=== PATIENT | male | born 1960 | race Caucasian/White ===

== ENCOUNTER 2019-11-02 18:26 | Emergency (ER) | payer OTHER ==
[~2019-11-02] VITALS: Ht 172.7 cm; Wt 80.7 kg
--- NOTE | 2019-11-02 19:13 | ED Lower Extremity ---
General Chief Complaint: Trauma-Non Activation Stated Complaint: FALL Nursing Triage Note: PT STATES HE FELL AND LANDED ON RIGHT HIP. Nursing Sepsis Screen: No Definite Risk History of Present Illness Date Seen by Provider: Nov 02, 2019 Time Seen by Provider: 18:40 Initial Comments 58 year old male reports falling 10/29/19, landing on his left hip and buttock. He also sustained an injury to his head, he denies any loss of consciousness. He drinks alcohol daily, after the fall he stopped drinking for 2 days and noticed tremors. He began drinking again yesterday and the tremors improved. He reports 3-4 beers today. He does not wish to stop drinking alcohol at this time. He is complaining of pain laterally in the left hip. He denies any pain radiating down his leg he denies any bowel or bladder changes. Onset: last week Pain/Injury Location: left hip; bilateral other (low back) Method of Injury: fell Allergies and Home Medications Allergies Coded Allergies: No Known Drug Allergies (Unverified , 11/02/19) Patient Home Medication List Home Medication List Reviewed: Yes Review of Systems Constitutional: no symptoms reported, see HPI Musculoskeletal: see HPI, back pain, joint pain (left hip) All Other Systems Reviewed Negative Unless Noted: Yes Past Ol[place]apu-Gtalsi-Hbfuwb Hx Past Med/Social Hx: Reviewed Nursing Past Med/Soc Hx Patient Social History Alcohol Use: Regular Use Number of Drinks Today: 3 Alcohol Beverage of Choice: Beer Recreational Drug Use: No Smoking Status: Current Everyday Smoker Type Used: Cigarettes 2nd Hand Smoke Exposure: Yes Recent Foreign Travel: No Contact w/Someone Who Travel: No Recent Infectious Disease Expo: No Recent Hopitalizations: No Physical Abuse: No Sexual Abuse: No Mistreated: No Fear: No Seasonal Allergies Seasonal Allergies: No Past Medical History Surgeries: Yes Orthopedic Respiratory: Yes COPD Currently Using CPAP: No Currently Using BIPAP: No Cardiac: No Neurological: Yes Seizure Disorder Genitourinary: No Gastrointestinal: No Musculoskeletal: Yes Back Injury, Chronic Back Pain, Fractures Endocrine: No HEENT: Yes Cataract Loss of Vision: Denies Hearing Impairment: Denies Cancer: No Psychosocial: No Integumentary: No Blood Disorders: No Physical Exam Vital Signs Vital Signs - First Documented 11/02/19 11/02/19 18:34 20:28 Temp 36.5 Pulse 76 Resp 17 B/P (MAP) 116/77 (90) Pulse Ox 97 O2 Delivery Room Air Capillary Refill : Less Than 3 Seconds Height, Weight, BMI Height: '" Weight: lbs. oz. kg; 27.00 BMI Method: General Appearance: WD/WN HEENT: PERRL/EOMI, normal ENT inspection, TMs normal, pharynx normal, other ( head normocephalic, small abrasion to the left parietal. No warmth, discharge, induraction or fluctuance.) Cardiovascular: regular rate, rhythm Respiratory: chest non-tender, lungs clear, normal breath sounds Gastrointestinal: normal bowel sounds, non tender, soft Hips: bilateral hip normal inspection, bilateral hip normal range of motion, bilateral hip no evidence of injury; left hip bone tenderness (lateral), left hip soft tissue tenderness Legs: bilateral leg non-tender, bilateral leg normal inspection, bilateral leg normal range of motion, bilateral leg no evidence of injury Neurologic/Tendon: normal sensation, normal motor functions, normal tendon functions Neurologic/Psychiatric: no motor/sensory deficits, alert, normal mood/affect, oriented x 3 Skin: normal color, warm/dry Tenderness to palpation in the lower lumbar spine region. Neurovascular status intact bilateral lower extremities. Walks with a steady gait. Progress/Results/Core Measures Results/Orders My Orders Orders - KEL MUNSON Lumbar Spine - 2-3 Views (11/02/19 18:49) Pelvis With Left Hip 2-3 Views (11/02/19 18:49) Ct Head/Cervical Spine Wo (11/02/19 19:50) Ed Iv/Invasive Line Start (11/02/19 19:51) Ns Iv 1000 Ml (Sodium Chloride 0.9%) (11/02/19 19:51) Ns Iv 1000 Ml (Sodium Chloride 0.9%) (11/02/19 19:46) Dipht,Pertuss(Acell),Tet Adult (Boostrix (11/02/19 20:30) Vital Signs/I&O 11/02/19 11/02/19 18:34 20:28 Temp 36.5 Pulse 76 78 Resp 17 18 B/P (MAP) 116/77 (90) 122/71 Pulse Ox 97 O2 Delivery Room Air Room Air Blood Pressure Mean: 90 Progress Progress Note : Time: 18:40 Progress Note Patient seen and evaluated, Diagnostic Imaging Diagonstic Imaging: Xray Plain Films/CT/US/NM/MRI: pelvis, hip Comments NAME: RAFAELA THOMAS [facility] REC#: [id number] PT STATUS: REG ER : 1960 PHYSICIAN: KEL MUNSON ADMIT DATE: 11/02/19/ER Signed Date of Exam:11/02/19 LUMBAR SPINE - 2-3 VIEWS EXAMINATION: Lumbosacral spine 2 or 3 views HISTORY: Fall. Left hip pain. COMPARISON: None available. FINDINGS: There is no acute fracture or dislocation of the lumbar spine. Alignment is anatomic. The vertebral body heights are well maintained. Mild to moderate degenerative changes are present in the lumbar spine, with disc height loss, facet hypertrophy and marginal osteophyte formation. The included soft tissues are unremarkable. IMPRESSION: 1. No acute fracture or dislocation in the lumbar spine. Dictated by: Dictated on workstation # [id number] Dict: 11/02/191909 Trans: 11/02/191914 [facility] [id number] Interpreted by: SARBJIT HENDERSON DO Electronically signed by: SARBJIT HENDERSON DO 11/02/191914 Diagonstic Imaging: Xray Plain Films/CT/US/NM/MRI: other (lumbar spine) Comments NAME: RAFAELA THOMAS [facility] REC#: [id number] PT STATUS: REG ER : 1960 PHYSICIAN: KEL MUNSON ADMIT DATE: 11/02/19/ER Signed Date of Exam:11/02/19 LUMBAR SPINE - 2-3 VIEWS EXAMINATION: Lumbosacral spine 2 or 3 views HISTORY: Fall. Left hip pain. COMPARISON: None available. FINDINGS: There is no acute fracture or dislocation of the lumbar spine. Alignment is anatomic. The vertebral body heights are well maintained. Mild to moderate degenerative changes are present in the lumbar spine, with disc height loss, facet hypertrophy and marginal osteophyte formation. The included soft tissues are unremarkable. IMPRESSION: 1. No acute fracture or dislocation in the lumbar spine. Dictated by: Dictated on workstation # [id number] Dict: 11/02/191909 Trans: 11/02/191914 [facility] [id number] Interpreted by: SARBJIT HENDERSON DO Electronically signed by: SARBJIT HENDERSON DO 11/02/191914 Reviewed: Reviewed by Me Diagonstic Imaging: CT Plain Films/CT/US/NM/MRI: c-spine, head Comments NAME: RAFAELA THOMAS [facility] REC#: [id number] PT STATUS: REG ER : 1960 PHYSICIAN: KEL MUNSON ADMIT DATE: 11/02/19/ER Draft Date of Exam:11/02/19 CT HEAD/CERVICAL SPINE WO PROCEDURE: CT head and CT cervical spine without contrast. TECHNIQUE: Multiple contiguous axial images were obtained through the brain and cervical spine without the use of intravenous contrast. Sagittal and coronal reformations through the cervical spine were then performed. Auto Exposure Controls were utilized during the CT exam to meet ALARA standards for radiation dose reduction. INDICATION: Multiple falls. Scalp contusion. Neck pain. COMPARISON: None. FINDINGS: CT head: No large acute territorial ischemia, mass, or hemorrhage. The ventricles and cortical sulci are prominent, consistent with generalized volume loss. The basilar cisterns are patent and unremarkable. The calvarium is intact. The visualized paranasal sinuses are clear. CT cervical spine: No acute fracture or dislocation is seen in the cervical spine. No focal osseous lesions. Vertebral body heights are well-maintained. The craniocervical junction is well-maintained. Moderate degenerative changes are seen in the cervical spine with disc osteophyte complexes and uncovertebral arthropathy. Soft tissues of the neck are unremarkable. IMPRESSION: 1. No hemorrhage or focal intra-axial mass. No CT evidence of large acute territorial ischemia. 2. No acute fracture or dislocation in the cervical spine. 3. Generalized parenchymal volume loss. 4. Moderate degenerative changes in the cervical spine. Dictated on workstation # [id number] Reviewed: Reviewed by Me Departure Impression Primary Impression: Fall Qualified Codes: W19.XXXA - Unspecified fall, initial encounter Additional Impressions: Left hip pain Degenerative joint disease (DJD) of lumbar spine Qualified Codes: M47.816 - Spondylosis without myelopathy or radiculopathy, lumbar region Concussion Qualified Codes: S06.0X0A - Concussion without loss of consciousness, initial encounter Alcohol abuse Disposition: 01 HOME, SELF-CARE Condition: Improved Departure-Patient Inst. Decision time for Depature: 19:20 Patient Instructions: Alcohol Abuse and Alcoholism (DC), Concussion, Adult (DC), Hip Pain (DC), Low Back Pain (DC) Add. Discharge Instructions: Do not stop drinking all alcohol but slowly decrease daily amount. Use walker or cane, for unsteady gate. Consider seeing your primary care doctor for alcohol cessation. You may alternate between Tylenol 650 mg and ibuprofen 600 mg every 4 hours for pain. Alternate heat and ice to your low back and left hip for pain. Follow-up with your primary care provider in 2-3 days. Return to the emergency department for new, urgent health care needs. All discharge instructions reviewed with patient and/or family. Voiced understanding. KEL MUNSON Nov 02, 2019 19:13
--- NOTE | 2019-11-02 19:15 | Diagnostic Imaging Report ---
CLINICAL HISTORY: Fall. Left hip pain. COMPARISON: None. TECHNIQUE: 3 views of the pelvis and left hip. FINDINGS: There is no acute fracture or dislocation of the pelvis and left hip. Alignment is anatomic. The bilateral SI joints are well aligned. Mild degenerative changes are present in the left hip with marginal osteophytes and joint space narrowing. No large joint effusion is seen in the left hip. The surrounding soft tissues are unremarkable. IMPRESSION: 1. No acute fracture or dislocation in the pelvis and left hip. Dictated by: Dictated on workstation # [id number]
[2019-11-02] MEDS ORDERED: NS IV 1000 ML 1,000 ML ONE (19:46)
[2019-11-02] MEDS ORDERED: NS IV 1000 ML 1,000 ML IV SCH (19:51)
--- NOTE | 2019-11-02 20:09 | Diagnostic Imaging Report ---
PROCEDURE: CT head and CT cervical spine without contrast. TECHNIQUE: Multiple contiguous axial images were obtained through the brain and cervical spine without the use of intravenous contrast. Sagittal and coronal reformations through the cervical spine were then performed. Auto Exposure Controls were utilized during the CT exam to meet ALARA standards for radiation dose reduction. INDICATION: Multiple falls. Scalp contusion. Neck pain. COMPARISON: None. FINDINGS: CT head: No large acute territorial ischemia, mass, or hemorrhage. The ventricles and cortical sulci are prominent, consistent with generalized volume loss. The basilar cisterns are patent and unremarkable. The calvarium is intact. The visualized paranasal sinuses are clear. CT cervical spine: No acute fracture or dislocation is seen in the cervical spine. No focal osseous lesions. Vertebral body heights are well-maintained. The craniocervical junction is well-maintained. Moderate degenerative changes are seen in the cervical spine with disc osteophyte complexes and uncovertebral arthropathy. Soft tissues of the neck are unremarkable. IMPRESSION: 1. No hemorrhage or focal intra-axial mass. No CT evidence of large acute territorial ischemia. 2. No acute fracture or dislocation in the cervical spine. 3. Generalized parenchymal volume loss. 4. Moderate degenerative changes in the cervical spine. Dictated by: Dictated on workstation # [id number]
[2019-11-02 20:28] VITALS: BP 122/71
[2019-11-02] MEDS ORDERED: TETANUS,DIPTH,PERTUSS P/F (BOOSTRIX) 0.5 ML VIAL IM ONE (20:30)
== END 2019-11-02 20:28 | disposition home or self-care (01) ==
LOC: ER 18:31
DX: S06.0X0A Concussion without loss of consciousness, initial encounter (principal); M25.552 Pain in left hip; M47.816 Spondylosis without myelopathy or radiculopathy, lumbar region; F10.10 Alcohol abuse, uncomplicated; F17.210 Nicotine dependence, cigarettes, uncomplicated; J44.9 Chronic obstructive pulmonary disease, unspecified; G40.909 Epilepsy, unspecified, not intractable, without status epilepticus; W19.XXXA Unspecified fall, initial encounter
CPT/HCPCS: 70450; 72100; 72125

== ENCOUNTER 2020-03-08 14:19 | Emergency (ER) | payer OTHER ==
[~2020-03-08] VITALS: Ht 180.3 cm; Wt 71.6 kg
--- NOTE | 2020-03-08 14:52 | ED Upper Extremity ---
General Chief Complaint: Upper Extremity Stated Complaint: RT SHOULDER INJ Nursing Triage Note: Patient reports he has seizures/syncopal episodes, states he had one today and woke up with right shoulder pain. Patient states he does not want to be evaluated for his syncopal episodes, only his right shoulder pain. Nursing Sepsis Screen: No Definite Risk History of Present Illness Date Seen by Provider: Mar 08, 2020 Time Seen by Provider: 14:40 Initial Comments Fall today in the bathtub, now having R shoulder pain. Says he as a Hx of theses episodes and [facility] Not on Seizure medication. Says he does not want evaluated for Sz, just his shoulder. Denies other injury. Allergies and Home Medications Allergies Coded Allergies: No Known Drug Allergies (Unverified , 11/02/19) Patient Home Medication List Home Medication List Reviewed: Yes Review of Systems Constitutional: no symptoms reported; No dizziness, No fever, No malaise, No weakness Respiratory: No cough, No short of breath Cardiovascular: No chest pain, No edema, No palpitations Gastrointestinal: No abdominal pain, No constipation, No diarrhea, No loss of appetite, No vomiting Musculoskeletal: No back pain; joint pain (R shoulder); No neck pain Skin: No change in color, No lesions, No rash Past Lisepcx-Vdizvy-Fjnvkc Hx Past Med/Social Hx: Reviewed Nursing Past Med/Soc Hx Patient Social History Alcohol Use: Regular Use Number of Drinks Today: 0 Alcohol Beverage of Choice: Beer Recreational Drug Use: Yes Drug of Choice: marijuana Smoking Status: Current Everyday Smoker Type Used: Cigarettes 2nd Hand Smoke Exposure: Yes Recent Foreign Travel: No Contact w/Someone Who Travel: No Recent Infectious Disease Expo: No Recent Hopitalizations: No Physical Abuse: No Sexual Abuse: No Mistreated: No Fear: No Seasonal Allergies Seasonal Allergies: No Past Medical History Surgeries: Yes Orthopedic Respiratory: Yes COPD Currently Using CPAP: No Currently Using BIPAP: No Cardiac: No Neurological: Yes Seizure Disorder Genitourinary: No Gastrointestinal: No Musculoskeletal: Yes Back Injury, Chronic Back Pain, Fractures Endocrine: No HEENT: Yes Cataract Loss of Vision: Denies Hearing Impairment: Denies Cancer: No Psychosocial: No Integumentary: No Blood Disorders: No Physical Exam Vital Signs Vital Signs - First Documented 03/08/20 14:27 Temp 36.5 Pulse 69 Resp 18 B/P (MAP) 104/71 (82) Pulse Ox 100 O2 Delivery Room Air Capillary Refill : Less Than 3 Seconds Height, Weight, BMI Height: '" Weight: lbs. oz. kg; 22.00 BMI Method: General Appearance: WD/WN, no apparent distress Neck: non-tender, full range of motion, supple, normal inspection Cardiovascular: regular rate, rhythm, no edema Respiratory: chest non-tender, lungs clear Back: normal inspection, no CVA tenderness, no vertebral tenderness Shoulder: bone tenderness (R AC and distal clavicle), deformity (elevation AC joint); No ecchymosis; limited ROM (slow, but near full ROM w signif pain) Elbow/Forearm: normal inspection, non-tender, no evidence of injury, normal ROM Wrist: Yes normal inspection, Yes non-tender, Yes no evidence of injury, Yes normal ROM Hand: normal inspection, non-tender, no evidence of injury, normal ROM Neurologic/Tendon: normal sensation, normal motor functions, normal tendon functions Neurologic/Psychiatric: no motor/sensory deficits, alert, normal mood/affect, oriented x 3 Skin: normal color, warm/dry Progress/Results/Core Measures Results/Orders My Orders Orders - CARLO CHAIREZ DO Shoulder 3 View Right (03/08/20 14:40) Chest 1 View Ap/Pa Only (03/08/20 15:16) Vital Signs/I&O 03/08/20 14:27 Temp 36.5 Pulse 69 Resp 18 B/P (MAP) 104/71 (82) Pulse Ox 100 O2 Delivery Room Air Blood Pressure Mean: 82 Departure Impression Primary Impression: Fracture, clavicle closed, shaft Qualified Codes: S42.021A - Displaced fracture of shaft of right clavicle, initial encounter for closed fracture Disposition: HOME, SELF-CARE Condition: Stable Departure-Patient Inst. Referrals: NO,LOCAL PHYSICIAN (PCP/Family) Primary Care Physician Patient Instructions: Clavicle Fracture (DC) Add. Discharge Instructions: Follow up at the [place] [facility] [place]: in 1-2 weeks regarding your episodes of passing out. in 4 weeks to repeat x-rays of your R clavicle and shoulder. All discharge instructions reviewed with patient and/or family. Voiced understanding. CARLO CHAIREZ DO Mar 08, 2020 14:51
--- NOTE | 2020-03-08 14:58 | Diagnostic Imaging Report ---
INDICATION: Fall with right shoulder pain. TIME OF EXAM: 2:45 PM. FINDINGS: Three views of the right shoulder were obtained. The glenohumeral and acromioclavicular alignment is normal. The acromiohumeral space is normal. There are some hypertrophic degenerative changes at the acromioclavicular joint. No fractures are seen. There appear to be healed fractures of the right 4th, 9th, and 10th ribs. IMPRESSION: No acute bony abnormality is detected. Dictated by: Dictated on workstation # [id number]
[2020-03-08 15:35] VITALS: BP 115/74
--- NOTE | 2020-03-08 15:52 | Diagnostic Imaging Report ---
INDICATION: Fall. FINDINGS: There is a midshaft fracture of the right clavicle with mild overriding. The lungs are well aerated and clear. No pneumothorax or pleural effusion. The heart is not enlarged. IMPRESSION: Midshaft fracture of the right clavicle with mild foreshortening. No other abnormalities demonstrated. Dictated by: Dictated on workstation # [id number]
--- OUTSIDE RECORDS SUMMARY | 2020-03-08 16:11 | XMS REPORT | Continuity of Care Document ---
Author Organization Unknown Address Unknown Phone Unavailable Allergies Active Description Code Type Severity Reaction Onset Reported/Identified Relationship to Patient Clinical Status Yes No Known Drug Allergies [id number] Drug Allergy Unknown N/A 11/02/2019 Medications There is no data. Problems Date Dx Coded Attending Type Code Diagnosis Diagnosed By 11/02/2019 ARPIT, KEL [employer]PART[employer] CHIEF Ot F10.10 ALCOHOL ABUSE, UNCOMPLICATED 11/02/2019 ARPIT, KEL [employer]PART[employer] CHIEF Ot F17.210 NICOTINE DEPENDENCE, CIGARETTES, UNCOMPL 11/02/2019 ARPIT, KEL [employer]PARTMENT CHIEF Ot G40.909 EPILEPSY, UNSP, NOT INTRACTABLE, WITHOUT 11/02/2019 ARPIT, KEL [employer]PARTMENT CHIEF Ot J44.9 CHRONIC OBSTRUCTIVE PULMONARY DISEASE, U 11/02/2019 ARPIT, KEL [employer] DEPARTMENT CHIEF Ot M25.552 PAIN IN LEFT HIP 11/02/2019 ARPIT, KEL [employer]PARTMENT CHIEF Ot M47.816 SPONDYLOSIS W/O MYELOPATHY OR RADICULOPA 11/02/2019 ARPIT, KEL [employer]PARTMENT CHIEF Ot S06.0X0A CONCUSSION WITHOUT LOSS OF CONSCIOUSNESS 11/02/2019 ARPIT, KEL [employer]PART[employer] CHIEF Ot W19.XXXA UNSPECIFIED FALL, INITIAL ENCOUNTER 11/03/2019 ARPIT, KEL [employer] CHIEF Ot F10.10 ALCOHOL ABUSE, UNCOMPLICATED 11/03/2019 ARPIT, KEL [employer] DEPARTMENT CHIEF Ot F17.210 NICOTINE DEPENDENCE, CIGARETTES, UNCOMPL 11/03/2019 ARPIT, KEL [employer] DEPARTMENT CHIEF Ot G40.909 EPILEPSY, UNSP, NOT INTRACTABLE, WITHOUT 11/03/2019 ARPIT, KEL [employer] DEPARTMENT CHIEF Ot J44.9 CHRONIC OBSTRUCTIVE PULMONARY DISEASE, U 11/03/2019 ARPIT, KEL [employer] DEPARTMENT CHIEF Ot M25.552 PAIN IN LEFT HIP 11/03/2019 ARPIT, KEL [employer] DEPARTMENT CHIEF Ot M47.816 SPONDYLOSIS W/O MYELOPATHY OR RADICULOPA 11/03/2019 ARPIT, KEL [employer] DEPARTMENT CHIEF Ot S06.0X0A CONCUSSION WITHOUT LOSS OF CONSCIOUSNESS 11/03/2019 ARPIT, KEL [employer] CHIEF Ot W19.XXXA UNSPECIFIED FALL, INITIAL ENCOUNTER Procedures There is no data. Results There is no data. Encounters ACCT No. Visit Date/Time Discharge Status Pt. Type Provider Facility Loc./Unit Complaint [id number] 03/08/2020 14:20:00 020 15:35:00 DIS Emergency CARLO CHAIREZ DO [facility] ER FS RT SHOULDER INJ [id number] 11/02/2019 18:31:00 020 20:28:00 DIS Emergency KEL MUNSON [facility] ER FALL
== END 2020-03-08 15:35 | disposition home or self-care (01) ==
LOC: EDUNIT# 14:19 → ER FS 14:20
DX: S42.021A Displaced fracture of shaft of right clavicle, initial encounter for closed fracture (principal); F17.210 Nicotine dependence, cigarettes, uncomplicated; W18.2XXA Fall in (into) shower or empty bathtub, initial encounter
CPT/HCPCS: 71045; 73030; 99283; A4565

== ENCOUNTER 2020-05-06 17:30 | Emergency (ER) | payer OTHER ==
[~2020-05-06] VITALS: Ht 182.8 cm; Wt 68.1 kg
--- NOTE | 2020-05-06 17:40 | ED Fall/Injury ---
General Stated Complaint: SYNCOPE,FALL Source: patient, EMS Exam Limitations: clinical condition History of Present Illness Date Seen by Provider: May 06, 2020 Time Seen by Provider: 17:28 Initial Comments The patient is a 59-year-old male who presents via EMS for evaluation after a fall. The patient admits to drinking alcohol today and admits to being an a lcoholic. His mother called and spoke with the nurse who said that he fell down some stairs at her home and may have had some seizure-like activity which he has had in the past. The patient denies a known seizure disorder. EMS reports that based on the scene it appeared that a handrail had broken and the patient fell approximately 3 steps hitting his head/face on the ground. He had a right-sided nosebleed which had stopped by the time they arrived. He has an abrasion to his upper right shoulder. The patient is slurring his speech and smells of EtOH and admits to drinking today. He has no complaints at this time. He is moving all extremities spontaneously. Occurred: just prior to arrival Severity: moderate Injuries/Pain Location: face Context: unknown Loss of Consciousness: unsure Associated Symptoms (Fall): Slurred Speech (smells of EtOH and admits to drinking earlier today and to being an alcoholic) Allergies and Home Medications Allergies Coded Allergies: No Known Drug Allergies (Unverified , 11/02/19) Patient Home Medication List Home Medication List Reviewed: Yes Review of Systems Review of Systems Constitutional: no symptoms reported Eyes: No Symptoms Reported Ears, Nose, Mouth, Throat: no symptoms reported Respiratory: no symptoms reported Cardiovascular: no symptoms reported Gastrointestinal: no symptoms reported Genitourinary: no symptoms reported Musculoskeletal: no symptoms reported Skin: no symptoms reported Psychiatric/Neurological: No Symptoms Reported All Other Systems Reviewed Negative Unless Noted: Yes Past Sxsctau-Orqwft-Hdabwm Hx Past Med/Social Hx: Reviewed Nursing Past Med/Soc Hx Patient Social History Alcohol Beverage of Choice: Beer Drug of Choice: marijuana Type Used: Cigarettes 2nd Hand Smoke Exposure: Yes Recent Hopitalizations: No Seasonal Allergies Seasonal Allergies: No Past Medical History Surgeries: Yes Orthopedic Respiratory: Yes COPD Currently Using CPAP: No Currently Using BIPAP: No Cardiac: No Neurological: Yes Seizure Disorder Genitourinary: No Gastrointestinal: No Musculoskeletal: Yes Back Injury, Chronic Back Pain, Fractures Endocrine: No HEENT: Yes Cataract Loss of Vision: Denies Hearing Impairment: Denies Cancer: No Psychosocial: No Integumentary: No Blood Disorders: No Physical Exam Vital Signs Vital Signs - First Documented 05/06/20 17:38 Temp 35.9 Pulse 78 Resp 18 B/P (MAP) 125/76 (92) Pulse Ox 93 O2 Delivery Room Air Capillary Refill : Height, Weight, BMI Height: '" Weight: lbs. oz. kg; 22.00 BMI Method: General Appearance: WD/WN, no apparent distress HEENT: PERRL/EOMI, pharynx normal, other (dried blood right nare) Neck: non-tender, full range of motion, supple, other (c-collar in place) Cardiovascular: regular rate, rhythm, no edema, no murmur Respiratory: lungs clear, normal breath sounds, no respiratory distress, no accessory muscle use Gastrointestinal: normal bowel sounds, non tender, soft Back: normal inspection, no CVA tenderness, no vertebral tenderness Extremities: normal range of motion, non-tender, normal inspection, normal capillary refill Neurologic/Psychiatric: alert, normal mood/affect, other (smells of ETOH, slurring words slightly) Skin: normal color, warm/dry, other (abrasion to right shoulder) Procedures/Interventions Chest Tube : Chest Tube Position: Right Chest Tube Location: Lateral Chest Size of German Tube (cm): 13 Chest Tube Procedure: betadine prep Anesthesia: 1% Lidocaine Volume Anesthetic (ccs): 2 Florentino of Air Jasper: Yes Number of Attempts: 1 Tube Sutured to Skin: No (thoravent adhesive and tape used) Post Procedure CXR?: Yes Progress Pt tolerated the chest tube very well. Repeat CXR showed the pneumothorax almost completely resolved. Progress/Results/Core Measures Results/Orders Lab Results Laboratory Tests Test 05/06/20 17:40 Range/Units White Blood Count 6.0 4.3-11.0 10^3/uL Red Blood Count 3.44 L 4.35-5.85 10^6/uL Hemoglobin 12.5 L 13.3-17.7 G/DL Hematocrit 36 L 40-54 % Mean Corpuscular Volume 104 H 80-99 FL Mean Corpuscular Hemoglobin 36 H 25-34 PG Mean Corpuscular Hemoglobin Concent 35 32-36 G/DL Red Cell Distribution Width 13.1 10.0-14.5 % Platelet Count 326 130-400 10^3/uL Mean Platelet Volume 9.2 7.4-10.4 FL Immature Granulocyte % (Auto) 1 % Neutrophils (%) (Auto) 49 42-75 % Lymphocytes (%) (Auto) 37 12-44 % Monocytes (%) (Auto) 10 0-12 % Eosinophils (%) (Auto) 3 0-10 % Basophils (%) (Auto) 1 0-10 % Neutrophils # (Auto) 2.9 1.8-7.8 X 10^3 Lymphocytes # (Auto) 2.2 1.0-4.0 X 10^3 Monocytes # (Auto) 0.6 0.0-1.0 X 10^3 Eosinophils # (Auto) 0.2 0.0-0.3 10^3/uL Basophils # (Auto) 0.1 0.0-0.1 10^3/uL Immature Granulocyte # (Auto) 0.0 0.0-0.1 10^3/uL Sodium Level 137 135-145 MMOL/L Potassium Level 3.8 3.6-5.0 MMOL/L Chloride Level 99 98-107 MMOL/L Carbon Dioxide Level 23 21-32 MMOL/L Anion Gap 15 H 5-14 MMOL/L Blood Urea Nitrogen 9 7-18 MG/DL Creatinine 0.63 0.60-1.30 MG/DL Estimat Glomerular Filtration Rate > 60 BUN/Creatinine Ratio 14 Glucose Level 106 H 70-105 MG/DL Calcium Level 9.3 8.5-10.1 MG/DL Corrected Calcium 9.3 8.5-10.1 MG/DL Magnesium Level 2.0 1.6-2.4 MG/DL Total Bilirubin 0.3 0.1-1.0 MG/DL Aspartate Amino Transf (AST/SGOT) 53 H 5-34 U/L Alanine Aminotransferase (ALT/SGPT) 31 0-55 U/L Alkaline Phosphatase 97 40-136 U/L Total Protein 7.1 6.4-8.2 GM/DL Albumin 4.0 3.2-4.5 GM/DL Serum Alcohol 310 *H <10 MG/DL My Orders Orders - SUDEEP MAC DO Cbc With Automated Diff (05/06/20 17:34) Comprehensive Metabolic Panel (05/06/20 17:34) Alcohol (05/06/20 17:34) Ns Iv 1000 Ml (Sodium Chloride 0.9%) (05/06/20 17:45) Magnesium (05/06/20 17:34) Ct Head/Cervical Spine Wo (05/06/20 17:34) Chest 1 View Ap/Pa Only (05/06/20 18:24) Lidocaine 1% Inj 20 Ml (Xylocaine 1% Inj (05/06/20 18:44) Chest 1 View Ap/Pa Only (05/06/20 18:58) Restraints: Medically Indicate Q2H (05/06/20 19:53) Medications Given in ED Current Medications Medications Dose Ordered Sig/Mary Route Start Time Stop Time Status Last Admin Dose Admin Lidocaine HCl 20 ml STK-MED ONCE .ROUTE 05/06/20 18:44 05/06/20 18:49 DC 05/06/20 19:00 20 ML Vital Signs/I&O 05/06/20 05/06/20 17:38 20:45 Temp 35.9 36.1 Pulse 78 78 Resp 18 22 B/P (MAP) 125/76 (92) 152/77 Pulse Ox 93 97 O2 Delivery Room Air Room Air Progress Progress Note : Progress Note @1800 - Notified pt has skull fracture and intracranial hemorrhage with possible pneumothorax (see on CT neck) @1830 - Dr. Sal Menendez accepts the trauma transfer to and requests a chest tube prior to transfer. @1850 - Chest tube (Thora-Vent) placed at this time. @2030 - Pt leaving with flight crew. Right eye now with mild dilation compared to left eye. Pt denies any vision changes. Critical Care Note Critical Care Start Time: 17:00 Stop Time: 18:00 Total Time (minutes) 60 Progress Managing multiple traumatic injuries, evaluate patient's response to treatment, reviewing lab results, reviewing imaging results, consultation with specialists, arranging for transfer, arranging for helicopter, multiple re-evaluations Departure Impression Primary Impression: Skull fracture Additional Impressions: Exophthalmos of right eye Intracranial hemorrhage Pneumothorax, right Disposition: XFER SHT-TRM HOSP Condition: Critical Admissions Decision to Admit Reason: Admit from ER (Trauma) Decision to Admit/Date: May 06, 2020 Time/Decision to Admit Time: 18:30 Transfer Transfer Reason: Exceeds level of care Time Spoke to Accepting Phy: 18:[address] Sal Menendez accepts the trauma transfer to Transfer Time: 19:00 Transfer Facility: Method of Transfer: Air Departure-Patient Inst. Referrals: NO,LOCAL PHYSICIAN (PCP/Family) Primary Care Physician SUDEEP MAC DO May 06, 2020 17:40
[2020-05-06] MEDS ORDERED: NS IV 1000 ML 1,000 ML IV SCH (17:45)
[2020-05-06 18:20] LABS: BASOPHILS # (AUTO) 0.1 10^3/uL (0.0-0.1); BASOPHILS % (AUTO) 1 % (0-10); EOSINOPHILS # (AUTO) 0.2 10^3/uL (0.0-0.3); EOSINOPHILS % (AUTO) 3 % (0-10); HEMATOCRIT 36 % (40-54); HEMOGLOBIN 12.5 G/DL (13.3-17.7); LYMPHOCYTES # (AUTO) 2.2 X 10^3 (1.0-4.0); LYMPHOCYTES % (AUTO) 37 % (12-44); MEAN CORPUSCULAR HEMOGLOBIN 36 PG (25-34); MEAN CORPUSCULAR HGB CONC 35 G/DL (32-36); MEAN CORPUSCULAR VOLUME 104 FL (80-99); MEAN PLATELET VOLUME 9.2 FL (7.4-10.4); MONOCYTES # (AUTO) 0.6 X 10^3 (0.0-1.0); MONOCYTES % (AUTO) 10 % (0-12); NEUTROPHILS # (AUTO) 2.9 X 10^3 (1.8-7.8); NEUTROPHILS % (AUTO) 49 % (42-75); PLATELET COUNT 326 10^3/uL (130-400)
--- NOTE | 2020-05-06 18:32 | Diagnostic Imaging Report ---
PROCEDURE: CT head and CT cervical spine without contrast. TECHNIQUE: Multiple contiguous axial images were obtained through the brain and cervical spine without the use of intravenous contrast. Sagittal and coronal reformations through the cervical spine were then performed. Auto Exposure Controls were utilized during the CT exam to meet ALARA standards for radiation dose reduction. INDICATION: Fall. Hit head on the ground. Scalp contusion. Neck pain. COMPARISON: 11/02/2019. FINDINGS: CT head: Subarachnoid hemorrhage is seen along the left temporal lobe in the left middle cranial fossa. Subarachnoid hemorrhage is also seen right of midline just superior to the sella. No large acute territorial ischemia is seen. No midline shift or mass effect. Decreased attenuation is seen in the periventricular and subcortical white matter. The ventricles and cortical sulci are prominent. The basilar cisterns are patent and unremarkable. Fracture is visualized involving the sphenotemporal buttress on the right. There is also a fracture of the right zygomatic arch. Pneumocephalus is noted in the right middle cranial fossa and surrounding the sella. Hemorrhage is noted in the right maxillary and sphenoid sinuses. Right-sided exophthalmus is seen. CT cervical spine: No acute fracture or dislocation is seen in the cervical spine. No focal osseous lesions. Vertebral body heights are well-maintained. The craniocervical junction is well-maintained. Moderate degenerative changes are seen in the cervical spine with disc osteophyte complexes and uncovertebral arthropathy. Soft tissues of the neck are unremarkable. Lucency is noted in the right apex, concerning for pneumothorax. IMPRESSION: 1. Right-sided skull fractures with associated hemorrhage right of the sella and in the left middle cranial fossa. Scattered pneumocephalus is also present. No midline shift or mass effect. 2. No large acute territorial ischemia. 3. Findings concerning for right-sided pneumothorax. Recommend chest x-ray to further evaluate. 4. No evidence of cervical spine fracture. 5. Hemorrhage in the right maxillary and sphenoid sinuses. Right-sided exophthalmus is also noted. Findings were discussed with Dr. Tran at 6:15 p.m. on 05/06/[address] Peter Nair. Dictated by: Dictated on workstation # [id number]
[2020-05-06 18:44] LABS: ALANINE AMINOTRANSFERASE 31 U/L (0-55); ALKALINE PHOSPHATASE 97 U/L (40-136); BILIRUBIN,TOTAL 0.3 MG/DL (0.1-1.0); BUN/CREATININE RATIO 14; CALCIUM 9.3 MG/DL (8.5-10.1); CARBON DIOXIDE 23 MMOL/L (21-32); CHLORIDE 99 MMOL/L (98-107); CREATININE SERUM 0.63 MG/DL (0.60-1.30); GFR ESTIMATED > 60; GLUCOSE 106 MG/DL (70-105); POTASSIUM 3.8 MMOL/L (3.6-5.0); SODIUM 137 MMOL/L (135-145); TOTAL PROTEIN 7.1 GM/DL (6.4-8.2)
[2020-05-06] MEDS ORDERED: LIDOCAINE 1% INJ 20 ML 20 ML VIAL ONE (18:44)
--- NOTE | 2020-05-06 18:52 | Diagnostic Imaging Report ---
EXAMINATION: Chest 1 view. HISTORY: Fall, right shoulder injury. COMPARISON: 03/08/2020. FINDINGS: Moderate right-sided pneumothorax is seen. No evidence of mediastinal shift. No focal consolidation. The cardiac silhouette is unremarkable. No displaced rib fracture is seen. IMPRESSION: Moderate right-sided pneumothorax without evidence of shift. Findings were called to the emergency department at 6:41 PM on 05/06/2020. Dictated by: Dictated on workstation # [id number]
--- NOTE | 2020-05-06 18:58 | NUR ---
Call placed to [facility], they are refueling at [place] and will be launching shortly to transport patient to . Attempted to call patient's mother, no answer received. Right thoravent chest tube placed by Dr. Tran.
--- NOTE | 2020-05-06 19:19 | Diagnostic Imaging Report ---
INDICATION: Chest tube placement. TECHNIQUE: Single view chest 6:57 p.m. CORRELATION STUDY: 05/06/2020. FINDINGS: Since prior study, tube has been placed over the lateral right mid chest. Right inferolateral lung field is incompletely imaged, however, there does appear to be significant reduction appreciated of right-sided pneumothorax. Left lung remains symmetrically well-inflated. Mediastinal structures are stable and unremarkable. Likely old healed right rib fracture deformities. IMPRESSION: Significant interval reduction in right-sided pneumothorax post tube placement. Dictated by: Dictated on workstation # [id number]
--- NOTE | 2020-05-06 19:30 | NUR ---
Call received from [facility], they are unable to lift d/t maintenance issues. They will look for another available helicopter.
--- NOTE | 2020-05-06 19:51 | NUR ---
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 Patient confused, pulling at c-collar and chest tube. Patient placed in soft wrist restraints to prevent chest tube from being dislodged or pulled out. Order obtained from Dr. Tran for soft wrist restraints.
--- NOTE | 2020-05-06 20:10 | NUR ---
Patient's mother called the ED for update, informed that patient to be transferred to [facility] by helicopter.
--- NOTE | 2020-05-06 20:30 | NUR ---
Patient dislodged chest tube, Dr. Tran able to thread chest tube back. Oxygen saturation 98% on room air, breath sounds equal, patient denies shortness of breath.
--- NOTE | 2020-05-06 20:38 | NUR ---
Flight crew here to transport patient.
[2020-05-06 20:45] VITALS: BP 152/77
--- NOTE | 2020-05-06 20:50 | NUR ---
Patient's mother called and notified that patient had left with flight crew en route to .
== END 2020-05-06 20:45 | disposition short-term general hospital (02) ==
LOC: EDUNIT# 17:30 → ER FS 17:31
DX: S02.91XA Unspecified fracture of skull, initial encounter for closed fracture (principal); S06.300A Unspecified focal traumatic brain injury without loss of consciousness, initial encounter; S40.211A Abrasion of right shoulder, initial encounter; H05.20 Unspecified exophthalmos; J93.9 Pneumothorax, unspecified; Z77.22 Contact with and (suspected) exposure to environmental tobacco smoke (acute) (chronic); W10.9XXA Fall (on) (from) unspecified stairs and steps, initial encounter; Y92.009 Unspecified place in unspecified non-institutional (private) residence as the place of occurrence of the external cause
CPT/HCPCS: 36415; 70450; 71045; 72125; 80053; 80320; 83735; 85025

== ENCOUNTER → 2021-03-08 | Outpatient (CLI) | payer OTHER ==
[~2021-03-08] MED LIST: GADOBUTROL 7.5 MMOL/7.5 ML (GADAVIST) VIAL IV ONE
--- NOTE | 2021-03-08 13:04 | Diagnostic Imaging Report ---
PROCEDURE: CT head without contrast. TECHNIQUE: Multiple contiguous axial images were obtained through the brain without the use of intravenous contrast. Auto Exposure Controls were utilized during the CT exam to meet ALARA standards for radiation dose reduction. INDICATION: Abnormal MRI demonstrating a right subdural bleed. Correlation is made with MRI brain study from earlier today as well as prior CT brain from 05/06/2020. The patient has developed a mixed density subdural hematoma along the right cerebral convexity measuring up to 10 mm in thickness. This does show areas of low-density and high-density which could represent a resolving recent subdural hematoma or perhaps acute on chronic subdural. This does exert some slight mass effect with shift of midline right to left approximately 6 mm. No other areas of hemorrhage are identified. Cisterns are patent. Visualized paranasal sinuses are clear. IMPRESSION: Mixed density right cerebral convexity subdural hematoma, as described. This does exert slight mass effect with [id number] midline shift of 6 mm. Results were called to Dr. Saxena at the time of this exam. Dictated by: Dictated on workstation # [id number]
--- NOTE | 2021-03-08 13:08 | Diagnostic Imaging Report ---
PROCEDURE: MR imaging of the brain with and without contrast. TECHNIQUE: Multiplanar, multisequence MR imaging of the brain was performed with and without contrast. INDICATION: Epilepsy. FINDINGS: There is prominence of the ventricles and sulci. There is some chronic microvascular ischemic disease. There is a right convexity subacute subdural hematoma. There is no hydrocephalus. There is no midline shift. There is no mass. There are no areas of diffusion restriction appreciated to suggest an acute CVA. The sinuses and mastoid air cells are clear. IMPRESSION: Subacute right convexity subdural hematoma measuring up to 6 to 7 mm in thickness. Atrophy and some chronic microvascular ischemic disease. No other acute intracranial abnormality. Dictated by: Dictated on workstation # [id number]
== END ==
LOC: RAD 11:00
PROVIDERS: ATTEND Psychiatry & Neurology Neurology
DX: S06.5X9A Traumatic subdural hemorrhage with loss of consciousness of unspecified duration, initial encounter (principal); G40.909 Epilepsy, unspecified, not intractable, without status epilepticus
CPT/HCPCS: 70450; 70553

== ENCOUNTER 2021-07-07 17:00 | Emergency (ER) | payer OTHER ==
[~2021-07-07] VITALS: Ht 180.3 cm; Wt 74.8 kg
[2021-07-07 17:04] VITALS: BP 123/73
--- OUTSIDE RECORDS SUMMARY | 2021-07-07 17:04 | XMS REPORT | Clinical Summary ---
Author Author [facility] Organization [facility] Address Unknown Phone Unavailable Care Team Providers Care Senior Data Modeler Name Role Phone PCP Unavailable Source Comments Some departments are not documenting in the electronic medical record. If you d o not see the information that you expected, contact Release of Information in [facility] Health Information Management department at [phone] for further assistan ce in locating additional records.[facility] Allergies No known active allergies Medications End Date Status Medication Sig Dispensed Refills Start Date Active acetaminophen (TYLENOL) Take two 15 tablet 0 325 mg tablet tablets by 0 mouth every 6 hours as needed for Pain. Active amoxicillin-potassium Take one 12 tablet 0 clavulanate (AUGMENTIN) tablet by 0 875/125 mg tablet mouth twice daily with meals. Take with food. Active levETIRAcetam (KEPPRA) Take one 12 tablet 0 500 mg tablet tablet by 0 mouth twice daily. Active oxyCODONE (ROXICODONE) 5 Take one 15 tablet 0 1 mg tablet tablet to 0 three tablets by mouth every 4 hours as needed Active Problems Problem Noted Date Fracture, zygoma closed, initial encounter 0 SAH (subarachnoid hemorrhage) 05/06/2020 Medical History Medical History Date Comments Smoker Social History Date Tobacco Use Types Packs/Day Years Used Current Every Day Smoker Cigarettes Smokeless Tobacco: Current User Comments Alcohol Use Standard Drinks/Week Yes 0 (1 standard drink = 0.6 o z pure alcohol) Alcohol Habits Answer Date Recorded How often do you have a drink containing alcohol? 4 or mor e times a week 05/08/2020 How many drinks containing alcohol do you have on No t asked a typical day when you are drinking? How often do you have six or more drinks on one Not asked occasion? Comment: Not asked Sex Assigned at Date Recorded Not on file Last Filed Vital Signs Reading Time Taken Comments Vital Sign 122/69 05/08/2020 8:00 AM CDT Blood Pressure 65 05/08/2020 8:00 AM CDT Pulse 36.6 C (97.9 F) 05/08/2020 8:00 AM CDT Temperature - - Respiratory Rate 96% 05/08/2020 8:00 AM CDT Oxygen Saturation - - Inhaled Oxygen Concentration 71.2 kg (157 lb) 05/07/2020 7:00 AM CDT Weight 180.3 cm (5' 11") 05/07/2020 7:00 AM CDT Height 21.9 05/07/2020 7:00 AM CDT Body Mass Index Plan of Treatment Health Maintenance Due Date Last Done Comments HIV SCREENING 12/06/1974 DTAP/TDAP VACCINES (1 - 12/06/1977 Tdap) HEPATITIS C SCREENING 12/06/1977 PHYSICAL (COMPREHENSIVE) 12/06/1977 EXAM COLORECTAL CANCER 12/06/2009 SCREENING SHINGLES RECOMBINANT 12/06/2009 VACCINE (1 of 2) INFLUENZA VACCINE 03/05/2021 Goals Goal Patient Associated Recent Progress Patient-Stat Aut hor Goal Type Problems ed? 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 05/06/2020 11:57 PM Full Code 05/06/2020 9:56 PM Provider has discussed Code Status No, more discussi on w/Patient or Family? needed
--- NOTE | 2021-07-07 17:38 | ED General ---
General Chief Complaint: Dizziness/Syncope Stated Complaint: SYNCOPAL EPISODE Nursing Triage Note: Patient brought to the ED by EMS for chief complaint of syncopal episode. EMS called by family who heard, but did not see patient fall. EMS reports patient was alert and ambulatory when they arrived on scene. Patient is slurring his words and states he has had a few beers today, but states he is not intoxicated. Source of Information: Patient, EMS Exam Limitations: No Limitations History of Present Illness Date Seen by Provider: Jul 07, 2021 Time Seen by Provider: 17:06 Initial Comments 60-year-old male with past medical history of alcohol use disorder coming in via EMS from home after he was found passed out in his house by family. The patient says this is common, and he was drinking this morning. He is currently denying any pain anywhere including headache, chest pain, abdominal pain, rib pain, extremity pain. Also denied any other symptoms, and he says this is fairly normal for him at this time of day, and he would not of called an ambulance himself. EMS reports his glucose was 99 and vitals were all stable. They said he was completely alert and oriented and back to baseline prior to their arrival. Allergies and Home Medications Allergies Coded Allergies: No Known Drug Allergies (Unverified , 11/02/19) Patient Home Medication List Home Medication List Reviewed: Yes Review of Systems Review of Systems Constitutional: No chills, No fever EENTM: No blurred vision Respiratory: No cough, No short of breath Cardiovascular: syncope Gastrointestinal: No abdominal pain Genitourinary: no symptoms reported Musculoskeletal: no symptoms reported Skin: no symptoms reported Psychiatric/Neurological: No Symptoms Reported Hematologic/Lymphatic: No Symptoms Reported Immunological/Allergic: no symptoms reported All Other Systems Reviewed Negative Unless Noted: Yes Past Oimhawf-Oqqckh-Simdhr Hx Patient Social History Tobacco Use?: Yes Tobacco type used: Cigarettes Smoking Status: Current Everyday Smoker Substance use?: No Alcohol Use?: Yes Alcohol type: Beer Pt feels they are or have been: No Seasonal Allergies Seasonal Allergies: No Past Medical History Surgeries: Yes Orthopedic Respiratory: Yes COPD Currently Using CPAP: No Currently Using BIPAP: No Cardiac: No Neurological: Yes Seizure Disorder Genitourinary: No Gastrointestinal: No Musculoskeletal: Yes Back Injury, Chronic Back Pain, Fractures Endocrine: No HEENT: Yes Cataract Loss of Vision: Denies Hearing Impairment: Denies Cancer: No Psychosocial: No Integumentary: No Blood Disorders: No Physical Exam Vital Signs Vital Signs - First Documented 07/07/21 17:04 Temp 36.3 Pulse 85 Resp 14 B/P (MAP) 123/73 (90) Pulse Ox 100 O2 Delivery Room Air Capillary Refill : Less Than 3 Seconds Height, Weight, BMI Height: '" Weight: lbs. oz. kg; 23.00 BMI Method: General Appearance: No Apparent Distress, WD/WN Eyes: Bilateral Eye Normal Inspection, Bilateral Eye PERRL HEENT: PERRL/EOMI, Normal ENT Inspection, Pharynx Normal Neck: Full Range of Motion, Normal Inspection, Non Tender, Supple Respiratory: Chest Non Tender, Lungs Clear, Normal Breath Sounds, No Accessory Muscle Use, No Respiratory Distress Cardiovascular: Regular Rate, Rhythm, No Edema, Normal Peripheral Pulses Gastrointestinal: Normal Bowel Sounds, Non Tender, Soft; No Distended, No Guarding Back: Normal Inspection, No Vertebral Tenderness Extremity: Normal Capillary Refill, Normal Inspection, Normal Range of Motion, Non Tender, No Calf Tenderness, No Pedal Edema Neurologic/Psychiatric: Alert, Oriented x3, No Motor/Sensory Deficits, Normal 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, 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 ABCs were intact, GCS 15, vital stable on presentation. Glucose appropriate for EMS. He has no outward signs of trauma. He is saying he was tired after drinking which clinically fits his presentation. Low suspicion for something more insidious. Previous episode of falling in the past with a subdural hemorrhage, so CT head ordered and interpreted by me showing no acute bleeding. The patient is at his mental baseline and is asking to go home. He does have family at home to watch over him. He was sent home with strict return precautions and stable condition. Diagnostic Imaging Diagonstic Imaging: CT Plain Films/CT/US/NM/MRI: head Comments [facility]. [place], [place] NAME: RAFAELA THOMAS [facility] REC#: [id number] PT STATUS: REG ER : 1960 PHYSICIAN: CROW HERNANDEZ MD ADMIT DATE: 07/07/21/ER FS Signed Date of Exam:07/07/21 CT HEAD WO EXAMINATION: CT head without contrast. TECHNIQUE: Multiple contiguous axial images were obtained through the brain without the use of intravenous contrast. All CT scans use one or more of the following dose optimizing techniques: automated exposure control, MA and/or KvP adjustment based on patient size and exam type or iterative reconstruction. HISTORY: Fall. History of prior subdural hematoma. COMPARISON: 03/08/2021. Departure Impression Primary Impression: Alcohol intoxication Qualified Codes: F10.920 - Alcohol use, unspecified with intoxication, uncomplicated Additional Impressions: Syncope Qualified Codes: R55 - Syncope and collapse Chronic subdural hematoma Disposition: 01 HOME, SELF-CARE Condition: Stable Departure-Patient Inst. Decision time for Depature: 17:42 Referrals: NO,LOCAL PHYSICIAN (PCP/Family) Primary Care Physician Patient Instructions: Syncope (Fainting) (DC), Alcohol Intoxication ED Add. Discharge Instructions: You are seen in the emergency department after you were found down. You have been drinking earlier today which likely is the cause. The picture of your head was reassuring and you do not have any new bleeding in your head. Please follow-up with your regular doctor. CROW HERNANDEZ MD Jul 07, 2021 17:38
--- NOTE | 2021-07-07 17:48 | Diagnostic Imaging Report ---
EXAMINATION: CT head without contrast. TECHNIQUE: Multiple contiguous axial images were obtained through the brain without the use of intravenous contrast. All CT scans use one or more of the following dose optimizing techniques: automated exposure control, MA and/or KvP adjustment based on patient size and exam type or iterative reconstruction. HISTORY: Fall. History of prior subdural hematoma. COMPARISON: 03/08/2021. FINDINGS: There has been interval decrease in size in the previously visualized right convexity subdural hematoma. No hyperattenuating products are seen to suggest acute bleed. No new areas of intracranial hemorrhage. No large acute territorial ischemia. The ventricles and cortical sulci are mildly prominent. The basilar cisterns are patent. The orbits are normal. Paranasal sinuses are normal. Mastoid air cells are clear. No soft tissue abnormality is seen. No osseus lesions or fractures are seen. IMPRESSION: 1. Interval decrease in size in the right convexity chronic appearing subdural hematoma. No evidence of acute intracranial hemorrhage. 2. No large acute territorial ischemia. 3. Mild parenchymal volume loss. Dictated by: Dictated on workstation # [id number]
== END 2021-07-07 18:04 | disposition home or self-care (01) ==
LOC: EDUNIT# 17:00 → ER FS 17:01
DX: F10.129 Alcohol abuse with intoxication, unspecified (principal); R55 Syncope and collapse; I62.00 Nontraumatic subdural hemorrhage, unspecified; J44.9 Chronic obstructive pulmonary disease, unspecified; F17.210 Nicotine dependence, cigarettes, uncomplicated
CPT/HCPCS: 70450

== ENCOUNTER → 2021-08-24 | Outpatient (CLI) | payer OTHER ==
--- NOTE | 2021-08-24 15:37 | Diagnostic Imaging Report ---
Clinical indication: Patient with syncope and collapse. No previous surgeries. Exam: Axial CT scan of the brain without IV contrast with coronal and sagittal reformatted images. Auto Exposure Controls were utilized during the CT exam to meet ALARA standards for radiation dose reduction. Comparison: Head CT without contrast dated 07/07/2021. Findings: There is only minimal decrease in size of the iso/hypodense subdural collection along the right cerebral convexity which currently measures 4 mm in width compared to prior study measured at 5 mm. There is no hyperdense component. There is no significant brain herniation or midline shift. There are no new areas of acute cerebral infarct, intracranial hemorrhage, brain herniation or midline shift. Brain parenchymal volume loss is again seen. There is no hydrocephalus. Basal cisterns are unremarkable. The extracranial soft tissues, skull and orbits are unremarkable. There is minimal ethmoid sinus mucosal thickening. Mastoid air cells are clear. Impression: 1: There is slight decreased size of the iso/hypodense right cerebral convexity fluid collection concerning for subacute subdural blood. There is no significant brain herniation or midline shift. 2: There is no evidence of interval acute intracranial process. Dictated by: Dictated on workstation # [id number]
--- NOTE | 2021-08-24 16:21 | Diagnostic Imaging Report ---
PROCEDURE: US carotid duplex, bilateral. TECHNIQUE: Multiple real-time grayscale images were obtained over the carotid arteries in various projections, bilaterally. Additional spectral analysis and color Doppler duplex images were also obtained. INDICATION: Syncope with collapse. FINDINGS: Real-time color Doppler imaging shows very dense calcified plaque within the carotid bulbs. This is significantly more on the right. Color Doppler imaging shows antegrade flow through the internal carotid arteries and vertebral arteries, bilaterally. Waveforms and peak velocities are normal with normal carotid ratios. IMPRESSION: Very dense plaquing within the carotid bulbs though no hemodynamic changes are seen. Maximal stenosis is estimated on the right to be approximately 50%. Parameters based on the consensus panel grayscale and Doppler ultrasound criteria published June 2003, Radiology, Volume 229. DOPPLER (peak systolic velocity M/S Right Left CCA 1.43 1.27 ICA Proximal 1.50 1.27 ICA Mid .83 1.03 ICA Distal .86 .92 RATIO 1.05 1.00 ECA 1.12 1.15 VERT .65 .58 Dictated by: Dictated on workstation # [id number]
== END ==
LOC: RAD 13:30
PROVIDERS: ATTEND Psychiatry & Neurology Neurology
DX: I65.23 Occlusion and stenosis of bilateral carotid arteries (principal)
CPT/HCPCS: 70450; 93880

== ENCOUNTER 2021-12-18 15:25 | Emergency (ER) | payer OTHER ==
[~2021-12-18] VITALS: Ht 180.3 cm; Wt 74.8 kg
[2021-12-18 15:25] VITALS: BP 145/80
[2021-12-18] MEDS ORDERED: IBUPROFEN 600 MG (MOTRIN) TAB PO ONE (15:45)
--- NOTE | 2021-12-18 16:01 | ED Back Pain ---
General Chief Complaint: Back Problems Stated Complaint: LOWER BACK PAIN Nursing Triage Note: Patient presents to the ED with c/o lower back pain and headache. Reports that he fell and hit his head after his legs gave out. Reports that lower back pain for 5 years. History of back fracture. Reports his legs gave out and he fell and hit his head. Source of Information: Patient, EMS Exam Limitations: No Limitations History of Present Illness Date Seen by Provider: December 18, 2021 Time Seen by Provider: 15:50 Initial Comments 61-year-old male with past medical history of chronic back pain coming in after he was picking up some brush from his truck, felt a spasm of pain in his back, and fell to the ground. He says he hit his head but did not pass out. He says this happens and has been happening for past 5 years. He is [facility] for [facility]. He has some low back pain and a headache that is mild. He has not taken any meds as of today for pain. He does not believe he takes any blood thinners. He is otherwise denying any other acute complaints including no chest pain, shortness of breath, abdominal pain, nausea, vomiting, diarrhea, fever, chills, focal weakness or numbness, bowel or bladder issue, vision changes, or any other concerns. Allergies and Home Medications Allergies Coded Allergies: No Known Drug Allergies (Unverified , 11/02/19) Patient Home Medication List Home Medication List Reviewed: Yes Review of Systems Constitutional: No chills, No fever Respiratory: no symptoms reported Cardiovascular: no symptoms reported Genitourinary: no symptoms reported Musculoskeletal: back pain Skin: no symptoms reported Psychiatric/Neurological: No Symptoms Reported All Other Systems Reviewed Negative Unless Noted: Yes Past Irfdpjo-Nvdhdc-Eqqhrc Hx Patient Social History Tobacco Use?: Yes Tobacco type used: Cigarettes Smoking Status: Current Everyday Smoker Substance use?: No Alcohol Use?: Yes Alcohol type: Beer Alcohol Frequency: Daily Immunizations Up To Date First/Initial COVID19 Vaccinat: Not currently vaccinated Seasonal Allergies Seasonal Allergies: No Past Medical History Surgery/Hospitalization HX: 3 knee surgeries; back fx; chronic pain. Patient poor historian. Surgeries: Yes Orthopedic Respiratory: Yes COPD Currently Using CPAP: No Currently Using BIPAP: No Cardiac: No Neurological: Yes Seizure Disorder Genitourinary: No Gastrointestinal: No Musculoskeletal: Yes Back Injury, Chronic Back Pain, Fractures Endocrine: No HEENT: Yes Cataract Loss of Vision: Denies Hearing Impairment: Denies Cancer: No Psychosocial: No Integumentary: No Blood Disorders: No Physical Exam Vital Signs Vital Signs - First Documented 12/18/21 15:25 Temp 37.6 Pulse 94 Resp 20 B/P (MAP) 145/80 (101) Pulse Ox 99 O2 Delivery Room Air Capillary Refill : Less Than 3 Seconds Height, Weight, BMI Height: '" Weight: lbs. oz. kg; 23.00 BMI Method: General Appearance: No Apparent Distress, WD/WN HEENT: PERRL/EOMI, TMs Normal, Normal ENT Inspection, Pharynx Normal Neck: Full Range of Motion, Normal Inspection, Non Tender, Supple Cardiovascular: Regular Rate, Rhythm, No Edema, Normal Peripheral Pulses Respiratory: Chest Non Tender, Lungs Clear, Normal Breath Sounds, No Accessory Muscle Use, No Respiratory Distress Gastrointestinal: Normal Bowel Sounds, Non Tender, Soft; No Distended, No Guarding Back: Normal Inspection, No CVA Tenderness, No Vertebral Tenderness, Other (Paravertebral tenderness in the lumbar and thoracic spine) Extremity: Normal Capillary Refill, Normal Inspection, Normal Range of Motion, Non Tender, No Calf Tenderness, No Pedal Edema Neurologic/Psychiatric: Alert, Oriented x3, No Motor/Sensory Deficits, Normal 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, 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 as Tested, Other (Normal gait, normal qgcsal-ju-apgq, 5 out of 5 strength with hip flexion, knee extension and fle xion, dorsiflexion and plantarflexion of the foot, 2+ reflexes in the patellar reflexes bilaterally) Skin: Normal Color, Warm/Dry Lymphatic: No Adenopathy Progress/Results/Core Measures Results/Orders My Orders Orders - CROW HERNANDEZ MD Ct Head Wo (12/18/21 15:36) Ct Thoracic Spine Wo (12/18/21 15:36) Ct Lumbar Spine Wo (12/18/21 15:36) Ibuprofen Tablet (Motrin Tablet) (12/18/21 15:45) Vital Signs/I&O 12/18/21 15:25 Temp 37.6 Pulse 94 Resp 20 B/P (MAP) 145/80 (101) Pulse Ox 99 O2 Delivery Room Air Blood Pressure Mean: 101 Progress Progress Note : Progress Note 61-year-old male with above history coming in due to mid and lower back pain for the past 5 years that feels a little bit worse right now. He also fell and says he hit his head with a mild headache. This happened just prior to arrival. GCS 15, vital stable, ABCs intact on presentation. Physical exam reassuring including a normal neurologic exam with no red flags. CT head, thoracic spine, lumbar spine ordered. Given ibuprofen for pain. Almost immediately after getting the CT, the patient walked out of his room and said he would like to go home. I discussed we are still awaiting his results is that he typically does not like to wait for anything. He says if anything is wrong then we can just tell him about it "in the mail". I discussed that he could have something broken in his back or a brain bleed. He was able to voice this back to me and he understands. He was alert and oriented and I believe he has capacity to make this decision to leave. He was then signed out AGAINST MEDICAL ADVICE. He ambulated on his own without difficulty. Diagnostic Imaging Diagonstic Imaging: CT (thoracic/lumbar spine, head) Comments [facility]. [place], [place] NAME: RAFAELA THOMAS [facility] REC#: [id number] PT STATUS: DEP ER : 1960 PHYSICIAN: CROW HERNANDEZ MD ADMIT DATE: 12/18/21/ER FS Signed Date of Exam:12/18/21 CT THORACIC SPINE WO PROCEDURE: CT thoracic spine without contrast. TECHNIQUE: Multiple axial computerized tomography images were obtained from the base of the thoracic spine to the vertex without intravenous contrast. Auto Exposure Controls were utilized during the CT exam to meet ALARA standards for radiation dose reduction. INDICATION: Fall, back pain. COMPARISON: None. FINDINGS: Alignment is normal. There is no subluxation or fracture. Central canal is preserved. There is no paraspinous hematoma. IMPRESSION: No traumatic malalignment or fracture. Dictated by: Dictated on workstation # [id number] Dict: 12/18/21 1622 Trans: 12/18/21 1655 [id number] Interpreted by: ODIN PALOMINO Electronically signed by: ODIN PALOMINO 12/18/21 1652 [facility] [place], [place] NAME: RAFAELA THOMAS [facility] REC#: [id number] PT STATUS: DEP ER : 1960 PHYSICIAN: CROW HERNANDEZ MD ADMIT DATE: 12/18/21/ER FS Signed Date of Exam:12/18/21 CT LUMBAR SPINE WO PROCEDURE: CT lumbar spine without contrast. TECHNIQUE: Multiple contiguous axial images were obtained through the lumbar spine without the use of intravenous contrast. Sagittal and coronal reformations were then performed. Auto Exposure Controls were utilized during the CT exam to meet ALARA standards for radiation dose reduction. INDICATION: Fall, back pain. COMPARISON: None. FINDINGS: Alignment is normal. There is no subluxation or fracture. There is a chronic L2 right transverse process fracture. Otherwise, posterior elements are unremarkable. Sfdf-hq-sitmczge degenerative changes are seen throughout. The central canal is preserved. There is no paraspinous mass or hematoma. IMPRESSION: No acute traumatic malalignment or fracture. Dictated by: Dictated on workstation # [id number] Dict: 12/18/21 1621 Trans: 12/18/21 1655 [id number] Interpreted by: ODIN PALOMINO Electronically signed by: ODIN PALOMINO 12/18/211654 [facility] [place], [place] NAME: RAFAELA THOMAS [facility] REC#: [id number] PT STATUS: [facility] ER : 1960 PHYSICIAN: CROW HERNANDEZ MD ADMIT DATE: 12/18/21/ER FS Signed Date of Exam:12/18/21 CT HEAD WO PROCEDURE: CT head without contrast. TECHNIQUE: Multiple contiguous axial images were obtained through the brain without the use of intravenous contrast. Auto Exposure Controls were utilized during the CT exam to meet ALARA standards for radiation dose reduction. DATE: December 18, 2021. COMPARISON: CT head August 24, 2021. MRI brain March 08, 2021. INDICATION: 61-year-old male, fall, headache. FINDINGS: There is no identified skull fracture. There is focal soft tissue swelling in the region of the right posterior scalp which may relate to soft tissue contusion or small hematoma. There is mild cerebral volume loss. There is an intermediate attenuation right-sided subdural fluid collection measuring 5 mm in thickness. There is no mass effect or midline shift. There is no identified abnormal acute intraparenchymal hemorrhage. The visualized portions of the paranasal sinuses, mastoid air cells and middle ears are well aerated. IMPRESSION: 1. 5 mm intermediate attenuation right-sided subdural fluid collection unchanged in size since August 24, 2021. No prominent mass effect or midline shift. No new abnormal extra-axial fluid collection. 2. Soft tissue contusion/small hematoma involving the right parietal scalp. 3. No identified skull fracture. Dictated by: Dictated on workstation # [id number] Dict: 12/18/21 1611 Trans: 12/18/21 1654 CV [id number] Interpreted by: REAGAN CONNOLLY MD Electronically signed by: REAGAN CONNOLLY MD 12/18/21 1654 Departure Impression Primary Impression: Fall Qualified Codes: W19.XXXA - Unspecified fall, initial encounter Additional Impression: Back pain Qualified Codes: M54.50 - Low back pain, unspecified; G89.29 - Other chronic pain Disposition: 07 AGAINST MEDICAL ADVICE Condition: Stable Departure-Patient Inst. Referrals: NESHA NGUYEN (PCP) Primary Care Physician MARIUSZ,LOCAL PHYSICIAN (Family) Primary Care Physician CROW HERNANDEZ MD December 18, 2021 16:00
--- NOTE | 2021-12-18 16:20 | Diagnostic Imaging Report ---
PROCEDURE: CT head without contrast. TECHNIQUE: Multiple contiguous axial images were obtained through the brain without the use of intravenous contrast. Auto Exposure Controls were utilized during the CT exam to meet ALARA standards for radiation dose reduction. DATE: December 18, 2021. COMPARISON: CT head August 24, 2021. MRI brain March 08, 2021. INDICATION: 61-year-old male, fall, headache. FINDINGS: There is no identified skull fracture. There is focal soft tissue swelling in the region of the right posterior scalp which may relate to soft tissue contusion or small hematoma. There is mild cerebral volume loss. There is an intermediate attenuation right-sided subdural fluid collection measuring 5 mm in thickness. There is no mass effect or midline shift. There is no identified abnormal acute intraparenchymal hemorrhage. The visualized portions of the paranasal sinuses, mastoid air cells and middle ears are well aerated. IMPRESSION: 1. 5 mm intermediate attenuation right-sided subdural fluid collection unchanged in size since August 24, 2021. No prominent mass effect or midline shift. No new abnormal extra-axial fluid collection. 2. Soft tissue contusion/small hematoma involving the right parietal scalp. 3. No identified skull fracture. Dictated by: Dictated on workstation # [id number]
--- NOTE | 2021-12-18 16:25 | Diagnostic Imaging Report ---
PROCEDURE: CT lumbar spine without contrast. TECHNIQUE: Multiple contiguous axial images were obtained through the lumbar spine without the use of intravenous contrast. Sagittal and coronal reformations were then performed. Auto Exposure Controls were utilized during the CT exam to meet ALARA standards for radiation dose reduction. INDICATION: Fall, back pain. COMPARISON: None. FINDINGS: Alignment is normal. There is no subluxation or fracture. There is a chronic L2 right transverse process fracture. Otherwise, posterior elements are unremarkable. Voii-yu-oqyikjhk degenerative changes are seen throughout. The central canal is preserved. There is no paraspinous mass or hematoma. IMPRESSION: No acute traumatic malalignment or fracture. Dictated by: Dictated on workstation # [id number]
--- NOTE | 2021-12-18 16:27 | Diagnostic Imaging Report ---
PROCEDURE: CT thoracic spine without contrast. TECHNIQUE: Multiple axial computerized tomography images were obtained from the base of the thoracic spine to the vertex without intravenous contrast. Auto Exposure Controls were utilized during the CT exam to meet ALARA standards for radiation dose reduction. INDICATION: Fall, back pain. COMPARISON: None. FINDINGS: Alignment is normal. There is no subluxation or fracture. Central canal is preserved. There is no paraspinous hematoma. IMPRESSION: No traumatic malalignment or fracture. Dictated by: Dictated on workstation # [id number]
== END 2021-12-18 16:10 | disposition left against medical advice (07) ==
LOC: EDUNIT# 15:25 → ER FS 15:26
DX: M54.50 Low back pain, unspecified (principal); G89.29 Other chronic pain; F17.210 Nicotine dependence, cigarettes, uncomplicated; W18.30XA Fall on same level, unspecified, initial encounter
CPT/HCPCS: 70450; 72128; 72131; 99281

== ENCOUNTER 2022-03-16 05:45 | Emergency (ER) | payer OTHER ==
[2022-03-16 05:48] VITALS: BP 170/81
--- NOTE | 2022-03-16 06:55 | Diagnostic Imaging Report ---
PROCEDURE: CT head and CT cervical spine without contrast. TECHNIQUE: Multiple contiguous axial images were obtained through the brain and cervical spine without the use of intravenous contrast. Sagittal and coronal reformations through the cervical spine were then performed. Auto Exposure Controls were utilized during the CT exam to meet ALARA standards for radiation dose reduction. INDICATION: Fall. Head and neck pain. History of seizure. COMPARISON: 12/18/2021. FINDINGS: CT head: No large acute territorial ischemia, mass, or hemorrhage. No midline shift or mass effect. Scattered chronic microvascular disease is seen in the periventricular and subcortical white matter. Chronic right convexity subdural hematoma is seen measuring 0.3 cm in thickness. The ventricles and cortical sulci are prominent. The basilar cisterns are patent and unremarkable. The calvarium is intact. The visualized paranasal sinuses are clear. CT cervical spine: No acute fracture or dislocation is seen in the cervical spine. No focal osseous lesions. Vertebral body heights are well-maintained. The craniocervical junction is well-maintained. Moderate degenerative changes are seen in the cervical spine with disc osteophyte complexes and uncovertebral arthropathy. Soft tissues of the neck are unremarkable. The included lungs are clear. IMPRESSION: 1. No hemorrhage or focal intra-axial mass. No CT evidence of large acute territorial ischemia. 2. No acute fracture or dislocation in the cervical spine. 3. Chronic right convexity subdural hematoma measures 0.3 cm in thickness, stable compared to the prior exam. Dictated by: Dictated on workstation # [id number]
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
[2022-03-16] MEDS ORDERED: ACETAMINOPHEN 500 MG TAB (TYLENOL) PO ONE (07:30)
[2022-03-16] MEDS ORDERED: TETANUS,DIPTH,PERTUSS P/F (BOOSTRIX) 0.5 ML VIAL IM ONE (07:30)
== END 2022-03-16 07:39 | disposition home or self-care (01) ==
LOC: EDUNIT# 05:45 → ER 05:47
DX: S01.01XA Laceration without foreign body of scalp, initial encounter (principal); F17.210 Nicotine dependence, cigarettes, uncomplicated; Z91.19 Patient's noncompliance with other medical treatment and regimen; Z23 Encounter for immunization; Z28.310 Unvaccinated for COVID-19; W18.30XA Fall on same level, unspecified, initial encounter
CPT/HCPCS: 70450; 72125; 90715; 99283

== ENCOUNTER 2022-07-19 16:56 | Emergency (ER) | payer OTHER ==
[2022-07-19 17:05] VITALS: BP 138/84
== END 2022-07-19 17:48 | disposition left against medical advice (07) ==
LOC: EDUNIT# 16:56 → ER FS 17:00
DX: S09.90XA Unspecified injury of head, initial encounter (principal); Z28.310 Unvaccinated for COVID-19; Y08.89XA Assault by other specified means, initial encounter; Y93.01 Activity, walking, marching and hiking; Y92.410 Unspecified street and highway as the place of occurrence of the external cause
CPT/HCPCS: 99282

== ENCOUNTER 2022-07-25 04:38 | Emergency (ER) | payer OTHER ==
[~2022-07-25] VITALS: Ht 180.3 cm; Wt 74.8 kg
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
[2022-07-25] MEDS ORDERED: PERM60CR4 TP (05:01)
[2022-07-25] MEDS ORDERED: ACETAMINOPHEN 500 MG TAB (TYLENOL) PO ONE (05:15)
[2022-07-25 05:17] VITALS: BP 141/89
--- NOTE | 2022-07-25 06:00 | Diagnostic Imaging Report ---
PROCEDURE: CT head without contrast. TECHNIQUE: Multiple contiguous axial images were obtained through the brain without the use of intravenous contrast. Auto Exposure Controls were utilized during the CT exam to meet ALARA standards for radiation dose reduction. INDICATION: Tinnitus and headache status post injury. COMPARISON: 03/16/2022 FINDINGS: Again identified is iso to hypodense chronic subdural fluid collection on the right. It is stable in volume when compared to 03/16/2022 and is felt to be chronic. No new acute intra or extra-axial intracranial hemorrhage is seen. Ventricles and cortical sulci remain moderately diffusely prominent consistent with age-related parenchymal volume loss. There is no new mass effect or midline shift. There is no new large area of loss of wong-white matter junction differentiation to suggest edema or evolving acute territorial infarct. No extra-axial masses or fluid collections are identified. Small scalp hematoma is noted posteriorly on the right. Underlying bony calvarium is intact. Paranasal sinuses and mastoid air cells are unremarkable. IMPRESSION: 1. No new acute intracranial abnormality. No CT evidence of acute infarct, mass, nor hemorrhage. 2. Redemonstration chronic stable right-sided subdural fluid collection. Dictated by: Dictated on workstation # [id number]
== END 2022-07-25 05:17 | disposition home or self-care (01) ==
LOC: EDUNIT# 04:38 → ER FS 04:39
DX: T14.8XXA Other injury of unspecified body region, initial encounter (principal); I62.03 Nontraumatic chronic subdural hemorrhage; F17.210 Nicotine dependence, cigarettes, uncomplicated; Z28.310 Unvaccinated for COVID-19; W57.XXXA Bitten or stung by nonvenomous insect and other nonvenomous arthropods, initial encounter
CPT/HCPCS: 70450